=== PATIENT | male | born 1970 | race Caucasian/White ===

== ENCOUNTER 2022-06-16 01:35 | Inpatient (IN) | payer MEDICAID, OTHER ==
[~2022-06-16] VITALS: Ht 177.8 cm; Wt 69.7 kg
[2022-06-16 02:14] LABS: COVID AG,FIA SOURCE NASAL SWAB
[2022-06-16 02:15] LABS: BASOPHILS % (AUTO) 0.6 % (0.0-2.0); EOSINOPHILS % (AUTO) 0.3 % (1.0-6.0); HEMATOCRIT 41.4 % (41-53); HEMOGLOBIN 13.9 g/dL (13.5-17.5); LYMPHOCYTES # (AUTO) 2.3 K/uL (1.0-4.8); LYMPHOCYTES % (AUTO) 21.4 % (22.0-44.0); MEAN CORPUSCULAR HEMOGLOBIN 32.1 pg (26.0-34.0); MEAN CORPUSCULAR HGB CONC 33.7 G/dL (31.0-37.0); MEAN CORPUSCULAR VOLUME 95 fL (80-100); MONOCYTES # (AUTO) 0.8 K/uL (0.1-1.0); MONOCYTES % (AUTO) 7.3 % (2.0-9.0); NEUTROPHILS # (AUTO) 7.7 K/uL (1.8-7.7); NEUTROPHILS % (AUTO) 70.4 % (40.0-70.0); PLATELET COUNT (AUTO) 329 K/uL (150-450); RED BLOOD CELL COUNT(AUTO) 4.34 MIL/uL (4.50-5.90); RED CELL DISTRIBUTION WIDTH 12.8 % (11.5-14.5)
[2022-06-16 02:28] LABS: ANION GAP 13 mmol/L (8-16); CALCIUM, TOTAL 9.4 mg/dL (8.8-10.5); CARBON DIOXIDE 26 mmol/L (22-29); CHLORIDE 99 mmol/L (98-107); GLUCOSE,RANDOM 118 mg/dL (70-110); POTASSIUM 3.3 mmol/L (3.5-5.1); SODIUM SERUM 138 mmol/L (136-145); UREA NITROGEN, BLOOD 9 mg/dL (7-18)
[2022-06-16 02:32] LABS: ALANINE AMINOTRANSFERASE 19 U/L (12-78); ALBUMIN 4.4 g/dL (3.4-5.0); ALKALINE PHOSPHATASE 86 U/L (46-116); ASPARTATE AMINOTRANSFERASE 17 U/L (15-37); BILIRUBIN,TOTAL 0.4 mg/dL (0.1-1.0); TOTAL PROTEIN, SERUM 8.2 g/dL (6.4-8.2)
[2022-06-16 02:48] LABS: GLOMERULAR FILTR. RATE CALC > 60 mL/min (>60)
[2022-06-16] MEDS ORDERED: POTASSIUM CHLORIDE 10% 40 MEQ/30 ML LIQUID UDCUP PO ONE (03:15)
[2022-06-16] MEDS ORDERED: HALOPERIDOL LACTATE 5 MG/ML VIAL IM ONE (03:15)
[2022-06-16] MEDS ORDERED: LORazepam 2 MG/ML VIAL IM ONE (03:15)
[2022-06-16] MEDS ORDERED: DiphenhydrAMINE HCL 50 MG/ML VIAL IM ONE (03:15)
[2022-06-16 03:40] LABS: AMPHET/METH SCREEN,URINE POSITIVE (NEGATIVE); BARBITURATE SCREEN, URINE NEGATIVE (NEGATIVE); BENZODIAZEPINES SCREEN,URINE NEGATIVE (NEGATIVE); CANNABINOID SCREEN,URINE POSITIVE (NEGATIVE); COCAINE SCREEN,URINE NEGATIVE (NEGATIVE); METHADONE SCREEN, URINE NEGATIVE (NEGATIVE); OPIATE SCREEN,URINE NEGATIVE (NEGATIVE)
[2022-06-16 03:42] LABS: PHENCYCLIDINE SCREEN,URINE NEGATIVE (NEGATIVE)
[2022-06-16] MEDS ORDERED: ACETAMINOPHEN 325 MG TABLET PO PRN (04:00)
[2022-06-16 07:15] VITALS: BP 105/71
[2022-06-16 07:19] VITALS: BP 105/71
[2022-06-16] MEDS ORDERED: INFLUENZA VIRUS VACCINE QVS 2022-23 (6MO+)/PF 60 MCG/0.5 ML SYRINGE IM. ONE (08:00)
[2022-06-16] MEDS ORDERED: OLAN10TA74 PO (10:06)
[2022-06-16] MEDS ORDERED: FLUO20CA36 PO (10:08)
[2022-06-16] MEDS ORDERED: LORazepam 2 MG TABLET PO PRN (10:30)
[2022-06-16] MEDS ORDERED: HALOPERIDOL 5 MG TABLET PO PRN (10:30)
[2022-06-16 20:00] VITALS: BP 126/82
[2022-06-17 09:12] VITALS: BP 106/67
[2022-06-17] MEDS: FLUoxetine HCL 20 MG CAPSULE PO SCH (09:23)
[2022-06-17] MEDS: OLANZapine 10 MG TABLET PO SCH (09:23)
[2022-06-17] MEDS ORDERED: ACETAMINOPHEN 325 MG TABLET PO PRN (10:45)
[2022-06-17] MEDS ORDERED: ONDANSETRON HCL 4 MG TABLET PO PRN (10:45)
[2022-06-17] MEDS ORDERED: GuaiFENesin/D-METHORPHAN [SUGAR-FREE] 200-20MG/10 ML SYRUP UDCUP PO PRN (10:45)
[2022-06-17] MEDS ORDERED: CloNIDine HCL 0.1 MG TABLET PO PRN (10:45)
[2022-06-17] MEDS ORDERED: MAG HYDROX/AL HYDROX/SIMETH ES 30 ML SUSPENSION UDCUP PO PRN (10:45)
[2022-06-17] MEDS ORDERED: ALBUTEROL SULFATE HFA 90 MCG/PUFF 8 GM INHALER IH PRN (10:45)
[2022-06-17] MEDS ORDERED: PETROLATUM,WHITE 28 GM JELLY TP PRN (10:45)
[2022-06-17] MEDS ORDERED: MAGNESIUM HYDROXIDE SUSPENSION 30 ML UDCUP PO PRN (10:45)
[2022-06-17] MEDS ORDERED: DOCUSATE SODIUM 100 MG CAPSULE PO PRN (10:45)
[2022-06-17] MEDS ORDERED: NICOTINE 14 MG/24 HOUR PATCH TD PRN (10:45)
[2022-06-17] MEDS ORDERED: LOPERAMIDE HCL 2 MG CAPSULE PO PRN (10:45)
[2022-06-17 20:34] VITALS: BP 112/65
[2022-06-17] MEDS: ZOLPIDEM TARTRATE 10 MG TABLET PO PRN (22:32)
[2022-06-17] MEDS: IBUPROFEN 400 MG TABLET PO PRN (22:33)
[2022-06-18] MEDS: FLUoxetine HCL 20 MG CAPSULE PO SCH (08:30)
[2022-06-18] MEDS: OLANZapine 10 MG TABLET PO SCH (08:30)
[2022-06-18 08:39] VITALS: BP 110/73
[2022-06-18 08:46] VITALS: BP 110/73
[2022-06-18] MEDS: IBUPROFEN 400 MG TABLET PO PRN ×2 (09:21→20:24)
[2022-06-18 20:03] VITALS: BP 115/84
[2022-06-18] MEDS: ZOLPIDEM TARTRATE 10 MG TABLET PO PRN (20:24)
[2022-06-19] MEDS: FLUoxetine HCL 20 MG CAPSULE PO SCH (08:22)
[2022-06-19 09:01] VITALS: BP 110/70
[2022-06-19] MEDS: OLANZapine 10 MG TABLET PO SCH (09:09)
[2022-06-19] MEDS ORDERED: FLUO20CA36 PO ×2 (11:40→13:46)
[2022-06-19] MEDS ORDERED: OLAN10TA74 PO (11:41)
[2022-06-19] MEDS ORDERED: OLAN10 PO (13:46)
== END 2022-06-19 13:00 | disposition home or self-care (01) | DRG 750 ==
LOC: EMS 01:38 → B2S 04:40
PROVIDERS: ADMIT Psychiatry & Neurology Child & Adolescent Psychiatry; ATTEND Psychiatry & Neurology Child & Adolescent Psychiatry
DX: F20.9 Schizophrenia, unspecified (principal); Z91.14 Patient's other noncompliance with medication regimen; E87.6 Hypokalemia; F41.9 Anxiety disorder, unspecified; Y90.4 Blood alcohol level of 80-99 mg/100 ml; Z20.822 Contact with and (suspected) exposure to COVID-19; Z60.8 Other problems related to social environment; F10.10 Alcohol abuse, uncomplicated; F15.90 Other stimulant use, unspecified, uncomplicated; Z79.899 Other long term (current) drug therapy
CPT/HCPCS: 80053; 80307; 85025; 99285; G0480; J1200; J1630; J2060